=== PATIENT | male | born 1970 | race Caucasian/White ===

== ENCOUNTER 2021-08-24 22:05 | Emergency (ER) | payer BC ==
[2021-08-24] MEDS ORDERED: Insulin Glargine,Human Rec. Analog 100 Units/ML 3 ML Pen SUBCUT ONE (22:06)
--- NOTE | 2021-08-24 23:02 | EDM.PDOCBH ---
ED HPI GENERAL MEDICAL PROBLEM - General Chief Complaint: Behavioral/Psych Stated Complaint: DEPRESSION Time Seen by Provider: 08/24/21 22:20 Source of Information: Reports: Patient - History of Present Illness INITIAL COMMENTS - FREE TEXT/NARRATIVE: 51-year-old gentleman called EMS from home and requested help because of eminent suicide ideation. Patient states that he has a plan and came down to the call for help or commit suicide. He does not own a gun at this point in time, it is in a pond shop, but he has held a gun to his head at times in the recent past and he has thought about driving head-on into a semitruck. Also considered homicide. He states that he is not sure if he really would commit suicide or homicide because of his loving care for his daughter who also suffers from depression. Patient has suffered with depression problems since he can remember, probably around age of 6. He is going through a divorce. Patient is physically healthy. He does have a history of depression, diabetes mellitus. He has been poorly controlled with his diabetes. States he has a history of neuropathy in his feet. He has not taking any of his prescribed medications for several days. He denies chest pain, fever, shortness of breath, viral symptoms, change in bowel or bladder habits. He has no acute physical health complaints. - Related Data Allergies Allergy/AdvReac Type Severity Reaction Status Date / Time No Known Allergies Allergy Verified 08/24/21 22:36 Home Meds: Home Meds ALPRAZolam [Alprazolam] 0.25 mg PO WITHDINNER 08/24/21 [History] Cetirizine [ZyrTEC] 10 mg PO WITHDINNER 08/24/21 [History] DULoxetine [Cymbalta] 60 mg PO WITHDINNER 08/24/21 [History] Insulin Aspart [Insulin Aspart Flexpen] 36 unit SUBCUT BIDMEALS 08/24/21 [History] busPIRone [Buspar] 10 mg PO BID@,18 08/24/21 [History] metFORMIN HCl [Metformin HCl ER] 500 mg PO BIDMEALS 08/24/21 [History] ED ROS GENERAL - Review of Systems Review Of Systems: See Below HEENT: Reports: No Symptoms Respiratory: Reports: No Symptoms Cardiovascular: Reports: No Symptoms Endocrine: Reports: No Symptoms GI/Abdominal: Reports: No Symptoms : Reports: No Symptoms Musculoskeletal: Reports: No Symptoms Skin: Reports: No Symptoms Neurological: Reports: No Symptoms Psychiatric: Reports: Depression, Homicidal Ideation, Suicidal Ideation Hematologic/Lymphatic: Reports: No Symptoms Immunologic: Reports: No Symptoms ED EXAM, BEHAVIORAL HEALTH - Physical Exam Exam: See Below Exam Limited By: No Limitations General Appearance: Alert, Anxious Eye Exam: Bilateral Eye: EOMI Head: Atraumatic, Normocephalic Neck: Normal Inspection Respiratory/Chest: No Respiratory Distress, Lungs Clear Cardiovascular: No Murmur, Tachycardia GI/Abdominal: Normal Bowel Sounds, Non-Tender Back Exam: Normal Inspection. No: CVA Tenderness (R), CVA Tenderness (L) Extremities: Normal Inspection Neurological: Alert, Normal Mood/Affect, CN II-XII Intact, Normal Cognition Psychiatric: Normal Cognition, Oriented, Depressed Mood, Tearful Skin Exam: Warm, Dry COURSE, BEHAVIORAL HEALTH COMP - Course Vital Signs: Last Vital Signs Temp 36.6 C 08/24/21 22:48 Pulse 97 08/24/21 23:23 Resp 16 08/24/21 22:48 BP 153/107 H 08/24/21 23:23 Pulse Ox 96 08/24/21 22:48 Orders, Labs, Meds: Laboratory Tests 08/24/21 08/24/21 08/24/21 Range/Units 23:07 23:07 23:07 WBC 5.8 (3.2-10.1) x10-3/uL RBC 5.66 (3.90-5.90) x10(6)uL Hgb 17.2 (12.9-17.7) g/dL Hct 50.4 H (38.3-50.1) % MCV 89.0 (80.8-98.7) fL MCH 30.3 (27.0-33.3) pg MCHC 34.1 (28.7-35.3) g/dL RDW 12.8 (12.4-15.0) % Plt Count 281 (117-477) x10(3)uL MPV 7.9 (6.7-11.0) fL Neut % (Auto) 62.3 (40.3-71.8) % Lymph % (Auto) 25.3 (15.8-45.3) % Baker % (Auto) 9.0 (5.5-15.2) % Eos % (Auto) 2.4 (0.1-6.8) % Baso % (Auto) 1.0 (0.3-3.8) % Neut # (Auto) 3.6 (1.7-6.9) x10-3/uL Lymph # (Auto) 1.5 (0.5-4.5) x10-3/uL Baker # (Auto) 0.5 (0.0-1.2) x10-3/uL Eos # (Auto) 0.1 (0.0-0.6) x10-3/uL Baso # (Auto) 0.1 (0.0-0.3) x10-3/uL Sodium 133 L (135-145) mmol/L Potassium 4.3 (3.5-5.3) mmol/L Chloride 96 L (100-110) mmol/L Carbon Dioxide 30 (21-32) mmol/L BUN 10 (7-18) mg/dL Creatinine 1.2 (0.70-1.30) mg/dL Est Cr Clr Drug Dosing 75.45 mL/min Estimated GFR (MDRD) > 60 (>60) BUN/Creatinine Ratio 8.3 L (9-20) Glucose 377 H (80-116) mg/dL POC Glucose (80-116) mg/dL Calcium 9.3 (8.6-10.2) mg/dL Total Bilirubin 0.7 (0.1-1.3) mg/dL AST 27 H (5-25) IU/L ALT 55 H (12-36) U/L Alkaline Phosphatase 102 (56-112) IU/L Total Protein 7.5 (6.0-8.0) g/dL Albumin 3.8 (3.5-5.2) g/dL Globulin 3.7 g/dL Albumin/Globulin Ratio 1.0 TSH, Ultra Sensitive 5.10 H (0.36-3.74) IU/mL Urine Color (YELLOW) Urine Appearance (CLEAR) Urine pH (5.0-6.5) Ur Specific [place] (1.010-1.025) Urine Protein (NEGATIVE) mg/dL Urine Glucose (UA) (NORMAL) mg/dL Urine Ketones (NEGATIVE) mg/dL Urine Occult Blood (NEGATIVE) Urine Nitrite (NEGATIVE) Urine Bilirubin (NEGATIVE) Urine Urobilinogen (NEGATIVE) mg/dL Ur Leukocyte Esterase (NEGATIVE) Urine RBC (0-5) Urine WBC (0-5) Ur Squamous Epith Cells (NS,R,O) Urine Bacteria (NS) Salicylates 1.0 L (<2.8) mg/dL Urine Opiates Screen (NEGATIVE) Ur Buprenorphine Scrn (NEGATIVE) Ur Oxycodone Screen (NEGATIVE) Urine Methadone Screen (NEGATIVE) Ur Propoxyphene Screen (NEGATIVE) Acetaminophen (<2) ug/mL Ur Barbiturates Screen (NEGATIVE) Ur Tricyclics Screen (NEGATIVE) Ur Phencyclidine Scrn (NEGATIVE) Ur Amphetamine Screen (NEGATIVE) U Methamphetamines Scrn (NEGATIVE) U Benzodiazepines Scrn (NEGATIVE) U Cocaine Metab Screen (NEGATIVE) U Marijuana (THC) Screen (NEGATIVE) Ethyl Alcohol (<0.03) % SARS-CoV-2 RNA (CHEPE) (NEGATIVE) 08/24/21 08/24/21 08/24/21 Range/Units 23:07 23:07 23:25 WBC (3.2-10.1) x10-3/uL RBC (3.90-5.90) x10(6)uL Hgb (12.9-17.7) g/dL Hct (38.3-50.1) % MCV (80.8-98.7) fL MCH (27.0-33.3) pg MCHC (28.7-35.3) g/dL RDW (12.4-15.0) % Plt Count (117-477) x10(3)uL MPV (6.7-11.0) fL Neut % (Auto) (40.3-71.8) % Lymph % (Auto) (15.8-45.3) % Baker % (Auto) (5.5-15.2) % Eos % (Auto) (0.1-6.8) % Baso % (Auto) (0.3-3.8) % Neut # (Auto) (1.7-6.9) x10-3/uL Lymph # (Auto) (0.5-4.5) x10-3/uL Baker # (Auto) (0.0-1.2) x10-3/uL Eos # (Auto) (0.0-0.6) x10-3/uL Baso # (Auto) (0.0-0.3) x10-3/uL Sodium (135-145) mmol/L Potassium (3.5-5.3) mmol/L Chloride (100-110) mmol/L Carbon Dioxide (21-32) mmol/L BUN (7-18) mg/dL Creatinine (0.70-1.30) mg/dL Est Cr Clr Drug Dosing mL/min Estimated GFR (MDRD) (>60) BUN/Creatinine Ratio (9-20) Glucose (80-116) mg/dL POC Glucose (80-116) mg/dL Calcium (8.6-10.2) mg/dL Total Bilirubin (0.1-1.3) mg/dL AST (5-25) IU/L ALT (12-36) U/L Alkaline Phosphatase (56-112) IU/L Total Protein (6.0-8.0) g/dL Albumin (3.5-5.2) g/dL Globulin g/dL Albumin/Globulin Ratio TSH, Ultra Sensitive (0.36-3.74) IU/mL Urine Color (YELLOW) Urine Appearance (CLEAR) Urine pH (5.0-6.5) Ur Specific [place] (1.010-1.025) Urine Protein (NEGATIVE) mg/dL Urine Glucose (UA) (NORMAL) mg/dL Urine Ketones (NEGATIVE) mg/dL Urine Occult Blood (NEGATIVE) Urine Nitrite (NEGATIVE) Urine Bilirubin (NEGATIVE) Urine Urobilinogen (NEGATIVE) mg/dL Ur Leukocyte Esterase (NEGATIVE) Urine RBC (0-5) Urine WBC (0-5) Ur Squamous Epith Cells (NS,R,O) Urine Bacteria (NS) Salicylates (<2.8) mg/dL Urine Opiates Screen (NEGATIVE) Ur Buprenorphine Scrn (NEGATIVE) Ur Oxycodone Screen (NEGATIVE) Urine Methadone Screen (NEGATIVE) Ur Propoxyphene Screen (NEGATIVE) Acetaminophen < 2 L (<2) ug/mL Ur Barbiturates Screen (NEGATIVE) Ur Tricyclics Screen (NEGATIVE) Ur Phencyclidine Scrn (NEGATIVE) Ur Amphetamine Screen (NEGATIVE) U Methamphetamines Scrn (NEGATIVE) U Benzodiazepines Scrn (NEGATIVE) U Cocaine Metab Screen (NEGATIVE) U Marijuana (THC) Screen (NEGATIVE) Ethyl Alcohol < 0.03 (<0.03) % SARS-CoV-2 RNA (CHEPE) Negative (NEGATIVE) 08/24/21 08/24/21 08/25/21 Range/Units 23:25 23:25 03:21 WBC (3.2-10.1) x10-3/uL RBC (3.90-5.90) x10(6)uL Hgb (12.9-17.7) g/dL Hct (38.3-50.1) % MCV (80.8-98.7) fL MCH (27.0-33.3) pg MCHC (28.7-35.3) g/dL RDW (12.4-15.0) % Plt Count (117-477) x10(3)uL MPV (6.7-11.0) fL Neut % (Auto) (40.3-71.8) % Lymph % (Auto) (15.8-45.3) % Baker % (Auto) (5.5-15.2) % Eos % (Auto) (0.1-6.8) % Baso % (Auto) (0.3-3.8) % Neut # (Auto) (1.7-6.9) x10-3/uL Lymph # (Auto) (0.5-4.5) x10-3/uL Baker # (Auto) (0.0-1.2) x10-3/uL Eos # (Auto) (0.0-0.6) x10-3/uL Baso # (Auto) (0.0-0.3) x10-3/uL Sodium (135-145) mmol/L Potassium (3.5-5.3) mmol/L Chloride (100-110) mmol/L Carbon Dioxide (21-32) mmol/L BUN (7-18) mg/dL Creatinine (0.70-1.30) mg/dL Est Cr Clr Drug Dosing mL/min Estimated GFR (MDRD) (>60) BUN/Creatinine Ratio (9-20) Glucose (80-116) mg/dL POC Glucose 343 H (80-116) mg/dL Calcium (8.6-10.2) mg/dL Total Bilirubin (0.1-1.3) mg/dL AST (5-25) IU/L ALT (12-36) U/L Alkaline Phosphatase (56-112) IU/L Total Protein (6.0-8.0) g/dL Albumin (3.5-5.2) g/dL Globulin g/dL Albumin/Globulin Ratio TSH, Ultra Sensitive (0.36-3.74) IU/mL Urine Color Yellow (YELLOW) Urine Appearance Clear (CLEAR) Urine pH 5.0 (5.0-6.5) Ur Specific [place] 1.010 (1.010-1.025) Urine Protein 30 H (NEGATIVE) mg/dL Urine Glucose (UA) >1000 H (NORMAL) mg/dL Urine Ketones 15 H (NEGATIVE) mg/dL Urine Occult Blood Negative (NEGATIVE) Urine Nitrite Negative (NEGATIVE) Urine Bilirubin Negative (NEGATIVE) Urine Urobilinogen Normal (NEGATIVE) mg/dL Ur Leukocyte Esterase Negative (NEGATIVE) Urine RBC 0-5 (0-5) Urine WBC 0-5 (0-5) Ur Squamous Epith Cells Rare (NS,R,O) Urine Bacteria Occasional H (NS) Salicylates (<2.8) mg/dL Urine Opiates Screen Negative (NEGATIVE) Ur Buprenorphine Scrn Negative (NEGATIVE) Ur Oxycodone Screen Negative (NEGATIVE) Urine Methadone Screen Negative (NEGATIVE) Ur Propoxyphene Screen Negative (NEGATIVE) Acetaminophen (<2) ug/mL Ur Barbiturates Screen Negative (NEGATIVE) Ur Tricyclics Screen Negative (NEGATIVE) Ur Phencyclidine Scrn Negative (NEGATIVE) Ur Amphetamine Screen Negative (NEGATIVE) U Methamphetamines Scrn Negative (NEGATIVE) U Benzodiazepines Scrn Negative (NEGATIVE) U Cocaine Metab Screen Negative (NEGATIVE) U Marijuana (THC) Screen Negative (NEGATIVE) Ethyl Alcohol (<0.03) % SARS-CoV-2 RNA (CHEPE) (NEGATIVE) 08/25/21 08/25/21 Range/Units 10:22 15:52 WBC (3.2-10.1) x10-3/uL RBC (3.90-5.90) x10(6)uL Hgb (12.9-17.7) g/dL Hct (38.3-50.1) % MCV (80.8-98.7) fL MCH (27.0-33.3) pg MCHC (28.7-35.3) g/dL RDW (12.4-15.0) % Plt Count (117-477) x10(3)uL MPV (6.7-11.0) fL Neut % (Auto) (40.3-71.8) % Lymph % (Auto) (15.8-45.3) % Baker % (Auto) (5.5-15.2) % Eos % (Auto) (0.1-6.8) % Baso % (Auto) (0.3-3.8) % Neut # (Auto) (1.7-6.9) x10-3/uL Lymph # (Auto) (0.5-4.5) x10-3/uL Baker # (Auto) (0.0-1.2) x10-3/uL Eos # (Auto) (0.0-0.6) x10-3/uL Baso # (Auto) (0.0-0.3) x10-3/uL Sodium (135-145) mmol/L Potassium (3.5-5.3) mmol/L Chloride (100-110) mmol/L Carbon Dioxide (21-32) mmol/L BUN (7-18) mg/dL Creatinine (0.70-1.30) mg/dL Est Cr Clr Drug Dosing mL/min Estimated GFR (MDRD) (>60) BUN/Creatinine Ratio (9-20) Glucose (80-116) mg/dL POC Glucose 260 H D 253 H (80-116) mg/dL Calcium (8.6-10.2) mg/dL Total Bilirubin (0.1-1.3) mg/dL AST (5-25) IU/L ALT (12-36) U/L Alkaline Phosphatase (56-112) IU/L Total Protein (6.0-8.0) g/dL Albumin (3.5-5.2) g/dL Globulin g/dL Albumin/Globulin Ratio TSH, Ultra Sensitive (0.36-3.74) IU/mL Urine Color (YELLOW) Urine Appearance (CLEAR) Urine pH (5.0-6.5) Ur Specific [place] (1.010-1.025) Urine Protein (NEGATIVE) mg/dL Urine Glucose (UA) (NORMAL) mg/dL Urine Ketones (NEGATIVE) mg/dL Urine Occult Blood (NEGATIVE) Urine Nitrite (NEGATIVE) Urine Bilirubin (NEGATIVE) Urine Urobilinogen (NEGATIVE) mg/dL Ur Leukocyte Esterase (NEGATIVE) Urine RBC (0-5) Urine WBC (0-5) Ur Squamous Epith Cells (NS,R,O) Urine Bacteria (NS) Salicylates (<2.8) mg/dL Urine Opiates Screen (NEGATIVE) Ur Buprenorphine Scrn (NEGATIVE) Ur Oxycodone Screen (NEGATIVE) Urine Methadone Screen (NEGATIVE) Ur Propoxyphene Screen (NEGATIVE) Acetaminophen (<2) ug/mL Ur Barbiturates Screen (NEGATIVE) Ur Tricyclics Screen (NEGATIVE) Ur Phencyclidine Scrn (NEGATIVE) Ur Amphetamine Screen (NEGATIVE) U Methamphetamines Scrn (NEGATIVE) U Benzodiazepines Scrn (NEGATIVE) U Cocaine Metab Screen (NEGATIVE) U Marijuana (THC) Screen (NEGATIVE) Ethyl Alcohol (<0.03) % SARS-CoV-2 RNA (CHEPE) (NEGATIVE) Medications Discontinued Medications Generic Name Dose Route Start Last Admin Trade Name Freq PRN Reason Stop Dose Admin Alprazolam 0.25 mg 08/24/21 23:56 08/25/21 01:02 Alprazolam 0.25 Mg Tab PO 08/24/21 23:57 0.25 mg ONETIME ONE Administration Alprazolam 0.25 mg 08/25/21 18:00 [facility] Bus[facility] HCl 10 mg 08/24/21 23:55 08/25/21 01:02 Buspirone 10 Mg Tab PO 08/24/21 23:56 10 mg ONETIME ONE Administration Buspirone HCl 10 mg 08/25/21 10:30 08/25/21 10:23 Buspirone 10 Mg Tab PO 10 mg BID@0800,1800 [facility] Administration Cetirizine HCl 10 mg 08/25/21 18:00 [facility]ine 10 Mg [facility] Dextrose/Water 50 ml 08/25/21 00:37 50% Dextrose In Water 50 Ml Syringe IVPUSH ASDIRECTED PRN Hypoglycemia Duloxetine HCl 60 mg 08/25/21 18:00 Duloxetine 60 Mg Cap [facility] Glucagon 1 mg 08/25/21 00:37 Glucagon,Human Recombinant 1 Mg Vial IM ASDIRECTED PRN Hypoglycemia Insulin Glargine 25 units 08/25/21 21:00 08/25/21 01:00 Insulin Glargine,Human Rec. Analog 100 Units/Ml 3 Ml Pen SUBCUT 25 units BEDTIME SUSAN Administration Insulin Glargine Confirm 08/25/21 00:55 08/25/21 01:02 Insulin Glargine,Human Rec. Analog 100 Units/Ml 3 Ml Pen Administered 08/25/21 00:56 Not Given Dose 300 units .ROUTE .STK-MED ONE Insulin Glargine 300 units 08/24/21 22:06 Insulin Glargine,Human Rec. Analog 100 Units/Ml 3 Ml Pen SUBCUT 08/24/21 22:07 .STK-MED ONE Labetalol HCl 200 mg 08/24/21 23:17 08/24/21 23:23 Labetalol 200 Mg Tab PO 08/24/21 23:18 200 mg ONETIME ONE Administration Metformin HCl 1,000 mg 08/25/21 00:37 08/25/21 01:02 Metformin 500 Mg Tab.Er PO 08/25/21 00:38 1,000 mg ONETIME STA Administration Metformin HCl 500 mg 08/25/21 10:30 08/25/21 10:19 Metformin 500 Mg Tab.Er PO 500 mg BIDMEALS SUSAN Administration Non-Formulary Medication 36 unit 08/25/21 09:00 08/25/21 09:30 Insulin Aspart [Insulin Aspart Flexpen] SUBCUT Not Given BID SUSAN Departure - Departure Time of Disposition: 08:00 Disposition: DC/Tfer to Psych Hosp/Unit [facility] Condition: Good Clinical Impression: Suicidal ideation - Discharge Information *PRESCRIPTION DRUG MONITORING PROGRAM REVIEWED*: Not Applicable *COPY OF PRESCRIPTION DRUG MONITORING REPORT IN PATIENT GERSON: Not Applicable Referrals: Nhi Banuelos PA [Primary Care Provider] - Forms: ED Department Discharge Sepsis Event Note (ED) - Evaluation Sepsis Screening Result: No Definite Risk
[2021-08-24] MEDS ORDERED: Labetalol 200 MG Tab PO ONE (23:17)
[2021-08-24] MEDS ORDERED: busPIRone 10 MG Tab PO ONE (23:55)
[2021-08-24] MEDS ORDERED: ALPRAZolam 0.25 MG Tab PO ONE (23:56)
[2021-08-25] MEDS ORDERED: metFORMIN 500 MG Tab.ER PO STA (00:37)
[2021-08-25] MEDS ORDERED: Glucagon,Human Recombinant 1 MG Vial IM PRN (00:37)
[2021-08-25] MEDS ORDERED: 50% Dextrose in Water 50 ML Syringe IVPUSH PRN (00:37)
[2021-08-25] MEDS ORDERED: Insulin Glargine,Human Rec. Analog 100 Units/ML 3 ML Pen ONE (00:55)
[2021-08-25] MEDS ORDERED: metFORMIN 500 MG Tab.ER PO SCH ×3 (08:00→10:30)
[2021-08-25] MEDS ORDERED: DULoxetine 60 MG Cap PO SCH ×2 (09:00→18:00)
[2021-08-25] MEDS ORDERED: Non-Formulary Medication 1 Each (Insulin Aspart [Insulin Aspart Flexpen] 100 UNIT/ML Insul SUBCUT SCH (09:00)
[2021-08-25] MEDS ORDERED: busPIRone 10 MG Tab PO SCH ×2 (09:00→10:30)
[2021-08-25] MEDS ORDERED: Cetirizine 10 MG Tab PO SCH (18:00)
[2021-08-25] MEDS ORDERED: ALPRAZolam 0.25 MG Tab PO SCH (18:00)
[2021-08-25] MEDS ORDERED: Insulin Glargine,Human Rec. Analog 100 Units/ML 3 ML Pen SUBCUT SCH (21:00)
== END 2021-08-25 16:45 ==
LOC: FB.ED 22:05
DX: F32.A Depression, unspecified (principal); Z20.822 Contact with and (suspected) exposure to COVID-19
CPT/HCPCS: 36415; 80053; 80143; 80179; 80307; 81001; 82947; 84443; 85025; 87635; 99285; A9270; J1815; U0002